=== PATIENT | female | born 1975 | race Two or more races ===

== ENCOUNTER → 2019-01-18 | Outpatient (CLI) | payer OTHER | LOC: MAMMO 08:56 | PROVIDERS: ATTEND Internal Medicine | DX: Z12.31 Encounter for screening mammogram for malignant neoplasm of breast (principal) | CPT/HCPCS: 77067 ==

== ENCOUNTER → 2020-05-09 | Outpatient (CLI) | payer OTHER ==
--- NOTE | 2020-05-09 11:10 | Diagnostic Imaging Report ---
EXAMINATION: CERVICAL SPINE 4 OR 5 VIEWS INDICATION: Neck pain COMPARISON: None FINDINGS: AP, lateral, oblique, and odontoid views of the cervical spine were obtained. There is straightening of the normal cervical lordosis. Alignment is otherwise anatomic. Vertebral body heights are maintained. Minimal multilevel degenerative changes with small osteophyte formation. Prevertebral soft tissues are normal in thickness. IMPRESSION: No acute osseous injury. Straightening of the normal cervical lordosis. Minimal multilevel degenerative changes. Signed by: Daryl Medina MD on 05/09/2020 11:07 AM
== END ==
LOC: MAMMO 08:16
PROVIDERS: ATTEND Internal Medicine
DX: Z12.31 Encounter for screening mammogram for malignant neoplasm of breast (principal); M47.812 Spondylosis without myelopathy or radiculopathy, cervical region
CPT/HCPCS: 72050; 77067